=== PATIENT | female | born 1970 ===

== ENCOUNTER 2018-04-20 18:12 | Emergency (ER) | payer MEDICAID, OTHER, SELFPAY ==
[~2018-04-20] VITALS: Ht 162.6 cm; Wt 61.0 kg
[2018-04-20 18:57] VITALS: BP 125/89
[2018-04-20 19:23] LABS: BASOPHILS # (AUTO) 0.04 x10^3/uL (0-0.1); BASOPHILS % (AUTO) 1 % (0-1); EOSINOPHILS # (AUTO) 0.08 x10^3/uL (0-0.4); EOSINOPHILS % (AUTO) 1 % (1-7); LYMPHOCYTES # (AUTO) 2.18 x10^3/uL (1-3.4); LYMPHOCYTES % (AUTO) 31 % (22-44); MD NO; MEAN CORPUSCULAR HEMOGLOBIN 34.5 pg (27.0-34.8); MEAN CORPUSCULAR HGB CONC 34.6 g/dL (32.4-35.8); MEAN CORPUSCULAR VOLUME 99.7 fL (80-100); MEAN PLATELET VOLUME 7.6 fL (7.4-10.4); MONOCYTES # (AUTO) 0.27 x10^3/uL (0.2-0.8); MONOCYTES % (AUTO) 4 % (2-9); NEUTROPHILS % (AUTO) 63 % (42-75); PLATELET COUNT 374 x10^3/uL (130-400); RED BLOOD COUNT 4.19 x10^6/uL (3.82-5.3); RED CELL DISTRIBUTION WIDTH 14.5 % (9.6-15.2)
[2018-04-20 19:33] LABS: ALANINE AMINOTRANSFERASE 23 U/L (12-78); ALBUMIN 4.1 g/dL (3.4-5.0); ANION GAP 4 mmol/L (5-15); CALCIUM 8.3 mg/dL (8.5-10.1); CHLORIDE 113 mmol/L (98-107); CREATININE 0.78 mg/dL (0.55-1.02)
[2018-04-20 19:35] LABS: ALKALINE PHOSPHATASE 95 U/L (45-117); BILIRUBIN,TOTAL 0.1 mg/dL (0.2-1.0); TOTAL PROTEIN 8.1 g/dL (6.4-8.2)
[2018-04-20 19:43] LABS: SALICYLATE LEVEL < 1.7 mg/dL (2.8-20.0)
[2018-04-20 19:44] LABS: ACETAMINOPHEN < 2 mcg/mL (10-30)
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
[2018-04-20] MEDS ORDERED: ACETAMINOPHEN 325 MG TABLET PO ONE (22:00)
[2018-04-20 22:18] LABS: AMPHETAMINE SCREEN, URINE Negative (Negative); BARBITURATE SCREEN, URINE Negative (Negative); BENZODIAZEPINE SCREEN, URINE Negative (Negative); CANNABINOID SCREEN, URINE Negative (Negative); COCAINE SCREEN, URINE Negative (Negative); METHADONE SCREEN, URINE Negative (Negative); OPIATE SCREEN, URINE Negative (Negative)
[2018-04-20] MEDS ORDERED: ACETAMINOPHEN 325 MG TABLET ONE (22:26)
== END 2018-04-20 22:31 | disposition home or self-care (01) ==
LOC: ED 22:25
DX: S06.0X0A Concussion without loss of consciousness, initial encounter (principal); R40.4 Transient alteration of awareness; Z72.9 Problem related to lifestyle, unspecified; F17.200 Nicotine dependence, unspecified, uncomplicated; Y04.8XXA Assault by other bodily force, initial encounter; Y93.89 Activity, other specified; Y92.89 Other specified places as the place of occurrence of the external cause; Y99.8 Other external cause status
CPT/HCPCS: 36415; 70450; 80053; 80307; 80329; 85025; 99284; G0480

== ENCOUNTER 2018-07-05 01:23 | Emergency (ER) | payer MEDICAID ==
[~2018-07-05] VITALS: Ht 162.6 cm; Wt 54.2 kg
[2018-07-05 01:26] VITALS: BP 135/81
[2018-07-05] MEDS ORDERED: ONDANSETRON ODT 4 MG PO ONE (02:00)
[2018-07-05] MEDS ORDERED: HYDROcodone/APAP 5/325 TABLET PO ONE (02:00)
[2018-07-05] MEDS ORDERED: LIDOCAINE-MPF 1%, 5ML INFIL ONE (02:00)
[2018-07-05] MEDS ORDERED: HYDROcodone/APAP 5/325 TABLET ONE (02:03)
[2018-07-05] MEDS ORDERED: ONDANSETRON ODT 4 MG ONE (02:04)
[2018-07-05] MEDS ORDERED: LIDOCAINE-MPF 1%, 5ML ONE (02:04)
--- NOTE | 2018-07-05 02:12 | NUR ---
pt medicated per apr. erp at for abcess I&D
[2018-07-05] MEDS ORDERED: CLINDAMYCIN 300 MG CAPSULE ONE (02:27)
[2018-07-05] MEDS ORDERED: CLINDAMYCIN 300 MG CAPSULE PO ONE (02:30)
== END 2018-07-05 02:48 | disposition home or self-care (01) ==
LOC: ED 02:35
DX: L02.11 Cutaneous abscess of neck (principal); B35.9 Dermatophytosis, unspecified; F17.200 Nicotine dependence, unspecified, uncomplicated
CPT/HCPCS: 10060; 87070; 87077; 87205; 99284; Q0162; 87186